=== PATIENT | female | born 1950 | race Caucasian/White ===

== ENCOUNTER 2020-11-25 07:31 | Outpatient (CLI) | payer MEDICARE, OTHER ==
[2020-11-25] MEDS ORDERED: ADENOSINE 60 MG/20 ML VIAL ONE (12:11)
== END 2020-11-25 07:32 | disposition home or self-care (01) ==
LOC: NM 07:31
PROVIDERS: ATTEND Internal Medicine
DX: R07.9 Chest pain, unspecified (principal)
CPT/HCPCS: 78452; 93017; A9500; J0153